=== PATIENT | male | born 2000 | race Caucasian/White ===

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

== ENCOUNTER 2021-07-31 11:10 | Emergency (ER) | payer MEDICAID ==
[~2021-07-31] VITALS: Ht 175.3 cm; Wt 97.5 kg
[2021-07-31 11:10] VITALS: BP_SYST 120
--- NOTE | 2021-07-31 11:10 | NUR ---
BROUGHT BACK TO BED #3 AND TRIAGED, REPORT GIVEN TO AMBROCIO
--- NOTE | 2021-07-31 11:15 | NUR ---
PT PLACED IN BED 3. REPORT TO AMBROCIO
--- NOTE | 2021-07-31 11:24 | NUR ---
MD GARIBAY ASSESSING PT AT BEDSIDE
--- NOTE | 2021-07-31 11:30 | NUR ---
PT STATED HE GOT A DIZZY SPELL, AND FEELINGS OF VIBRATIONS WHILE GETTING A HAIRCUT THIS MORNING.
--- NOTE | 2021-07-31 11:40 | NUR ---
pt taken to radiology
--- NOTE | 2021-07-31 11:50 | NUR ---
PT BACK FROM RADIOLOGY
[2021-07-31 11:51] LABS: BASOPHILS % (AUTO) 0.8 % (0.0-2.0); EOSINOPHILS # (AUTO) 0.2 K/uL (0.0-0.4); EOSINOPHILS % (AUTO) 2.7 % (0.0-4.0); HEMATOCRIT 47.2 % (36-54); LYMPHOCYTES # (AUTO) 1.7 K/uL (1.0-5.5); LYMPHOCYTES % (AUTO) 28.4 % (20.5-51.5); MEAN CORPUSCULAR HEMOGLOBIN 30 pg (27-31); MEAN CORPUSCULAR HGB CONC 34 % (32-36); MEAN CORPUSCULAR VOLUME 89 fL (79.0-98.0); MONOCYTES # (AUTO) 0.5 K/uL (0.0-1.0); MONOCYTES % (AUTO) 8.8 % (1.7-9.3); NEUTROPHILS # (AUTO) 3.5 K/uL (1.8-7.7); NEUTROPHILS % (AUTO) 59.3 % (40.0-70.0); PLATELET COUNT (AUTO) 201 K/uL (130-430); RED BLOOD CELL COUNT(AUTO) 5.28 MIL/uL (4.2-6.2); RED CELL DISTRIBUTION WIDTH 12.7 % (9.0-15.0); WHITE BLOOD COUNT (AUTO) 5.9 K/uL (4.5-11.0)
[2021-07-31 11:59] LABS: CALCIUM 9.1 mg/dL (8.4-11.0); CREATININE 1.02 mg/dL (0.55-1.30); POTASSIUM 4.3 mmol/L (3.5-5.1)
[2021-07-31 12:02] LABS: INR 0.9 (0.80-1.20); PROTHROMBIN TIME 9.6 SECS (9.5-12.5)
[2021-07-31 12:17] LABS: ALBUMIN 3.9 g/dL (3.4-4.8); TOTAL BILIRUBIN 0.4 mg/dL (0.0-1.0)
[2021-07-31 13:15] VITALS: BP_SYST 120
--- NOTE | 2021-07-31 13:16 | NUR ---
Patient given written and verbal discharge instructions and verbalizes understanding. ER MD discussed with patient the results and treatment provided. Patient in stable condition. ID arm band removed. Patient educated on pain management and to follow up with PMD. Pain Scale 0/10. Opportunity for questions provided and answered. Medication side effect fact sheet provided.
== END 2021-07-31 13:16 | disposition home or self-care (01) ==
LOC: SED 11:10
DX: R55 Syncope and collapse (principal)
CPT/HCPCS: 36415; 70450-TC; 71045; 76376; 80053; 83605; 84484; 85025; 85610-TC; 85730-TC; 99285

== ENCOUNTER 2023-10-28 00:58 | Emergency (ER) | payer MEDICAID ==
[~2023-10-28] VITALS: Ht 175.3 cm; Wt 86.2 kg
[2023-10-28 01:00] VITALS: BP_SYST 116; PULSE 112; RESP 19; TEMP 101.2; O2SAT 98
[2023-10-28 01:44] LABS: COVID19 ANTIGEN SOFIA FIA NEGATIVE (NEGATIVE)
[2023-10-28 02:02] LABS: INFLUENZA TYPE B NEGATIVE (NEGATIVE)
[2023-10-28 02:04] LABS: INFLUENZA TYPE A POSITIVE (NEGATIVE)
[2023-10-28] MEDS ORDERED: NACL 0.9% 1,000 ML IV ONE (02:15)
[2023-10-28] MEDS ORDERED: ONDANSETRON 4 MG ODT TAB PO ONE (02:15)
[2023-10-28] MEDS ORDERED: ONDANSETRON HCL 4 MG/2 ML VIAL IVP ONE (02:15)
[2023-10-28] MEDS ORDERED: ACETAMINOPHEN 500 MG TABLET PO ONE (02:15)
[2023-10-28] MEDS ORDERED: ONDA-8 TL (03:00)
[2023-10-28] MEDS ORDERED: OSEL75CA PO (03:00)
[2023-10-28 04:25] VITALS: BP_SYST 125; PULSE 88; RESP 18; TEMP 98; O2SAT 99
== END 2023-10-28 04:25 | disposition home or self-care (01) ==
LOC: SED 00:58
DX: J10.1 Influenza due to other identified influenza virus with other respiratory manifestations (principal); B34.9 Viral infection, unspecified; R11.2 Nausea with vomiting, unspecified; R50.9 Fever, unspecified; R05.9 Cough, unspecified; J45.909 Unspecified asthma, uncomplicated; Z79.899 Other long term (current) drug therapy; Z20.822 Contact with and (suspected) exposure to COVID-19
CPT/HCPCS: 99283; 96374; 96361; 87426; 36415; 87804 ×2; J2405; J7030